=== PATIENT | female | born 2000 | race Caucasian/White ===

== ENCOUNTER 2020-10-28 14:45 | Emergency (ER) | payer OTHER, SELFPAY ==
[2020-10-28 15:03] VITALS: BP 129/67; PULSE 88; RESP 12; TEMP 36.6; O2SAT 99; BMI 29.1
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
[2020-10-28 15:41] VITALS: BP 120/65; PULSE 83; RESP 20; O2SAT 99
== END 2020-10-28 16:00 | disposition home or self-care (01) ==
PROVIDERS: Emergency Provider Emergency Medicine
DX: S16.1XXA Strain of muscle, fascia and tendon at neck level, initial encounter (principal); R51.9 Headache, unspecified; V89.2XXA Person injured in unspecified motor-vehicle accident, traffic, initial encounter
CPT/HCPCS: 99281